=== PATIENT | female | born 1995 | race African-American/Black ===

== ENCOUNTER 2017-09-20 23:20 | Emergency (ER) | payer MEDICAID ==
[~2017-09-20] VITALS: Ht 162.6 cm; Wt 42.0 kg
[2017-09-21] MEDS ORDERED: SODIUM CHLORIDE 0.9% 1,000 ML IV ONE (00:09)
[2017-09-21 00:58] LABS: BASOPHILS % 0.3 % (0.0-2.0); EOSINOPHILS % 0.1 % (0.0-5.0); HEMATOCRIT. 31.2 % (36.0-48.0); HEMOGLOBIN. 9.7 g/dL (12.0-16.0); LYMPHOCYTES % 10.4 % (20.0-50.0); MEAN CORPUSCULAR HEMOGLOBIN 22.9 pg (28.0-32.0); MEAN CORPUSCULAR VOLUME 73.3 fL (81.0-99.0); MEAN PLATELET VOLUME 8.5 fl (7.4-10.4); MONOCYTES % 7.1 % (2.0-8.0); NEUTROPHILS % 82.1 % (40.0-76.0); PLATELET 256 x1000/uL (130-400); RED BLOOD CELL COUNT 4.25 mill/uL (4.2-5.4)
[2017-09-21 00:59] LABS: CLARITY URINE CLOUDY (CLEAR); COLOR URINE YELLOW (YELLOW); KETONES URINE TRACE (NEGATIVE); LEUKOCYTE ESTERASE URINE 1+ (NEGATIVE); NITRITE URINE NEGATIVE (NEGATIVE); OCCULT BLOOD URINE 2+ (NEGATIVE); PROTEIN URINE 2+ (NEGATIVE); SPECIFIC GRAVITY URINE 1.024 (1.005-1.030)
[2017-09-21 01:02] LABS: CHLORIDE 108 mEq/L (98-107)
[2017-09-21 01:05] LABS: INR 1.1; PROTHROMBIN TIME 11.7 sec (9.4-11.6)
[2017-09-21 01:07] LABS: ETHANOL BLOOD < 10 mg/dL
[2017-09-21 01:09] LABS: *AMPHETAMINES SCREEN URINE NEGATIVE (NEGATIVE); *BARBITURATES SCREEN URINE NEGATIVE (NEGATIVE)
[2017-09-21 01:10] LABS: *BENZODIAZEPINES SCREEN URINE NEGATIVE (NEGATIVE); *COCAINE SCREEN URINE NEGATIVE (NEGATIVE); METHADONE URINE SCREEN NEGATIVE (NEGATIVE); OPIATES URINE SCREEN NEGATIVE (NEGATIVE)
[2017-09-21 01:11] LABS: PHENCYCLIDINE URINE SCREEN NEGATIVE (NEGATIVE)
[2017-09-21 01:11] LABS: CREATINE KINASE 55 IU/L (26-192)
[2017-09-21 01:15] LABS: CANNABINOID URINE SCREEN PRESUMTIVE POSITIVE (NEGATIVE)
[2017-09-21] MEDS ORDERED: NITROFURANTOIN 100MG M/M CAPSULE PO NR (02:45)
[2017-09-21 03:14] VITALS: BP 99/57
== END 2017-09-21 03:14 | disposition home or self-care (01) ==
LOC: ER 23:20
DX: T50.901A Poisoning by unspecified drugs, medicaments and biological substances, accidental (unintentional), initial encounter (principal); N39.0 Urinary tract infection, site not specified; F22 Delusional disorders; Y92.89 Other specified places as the place of occurrence of the external cause
CPT/HCPCS: 36415; 80053; 80305; 80307; 80329; 81003; 81025; 82550; 84443; 85025; 85610; 87086; 93005; 96360; 96361; 99285; G0482; J7030